=== PATIENT | female | born 1945 | race Asian ===

== ENCOUNTER 2022-06-30 22:51 | Emergency (ER) | payer MEDICARE, OTHER ==
[~2022-06-30] VITALS: Ht 152.4 cm; Wt 72.7 kg
[2022-06-30 23:39] LABS: BASOPHILS % (AUTO) 0.4 % (0.0-2.0); EOSINOPHILS % (AUTO) 0.2 % (1.0-6.0); HEMOGLOBIN 13.2 g/dL (12.0-16.0); LYMPHOCYTES # (AUTO) 1.1 K/uL (1.0-4.8); LYMPHOCYTES % (AUTO) 8.6 % (22.0-44.0); MEAN CORPUSCULAR HEMOGLOBIN 28.9 pg (26.0-34.0); MEAN CORPUSCULAR HGB CONC 32.9 G/dL (31.0-37.0); MEAN CORPUSCULAR VOLUME 88 fL (80-100); MONOCYTES # (AUTO) 0.6 K/uL (0.1-1.0); MONOCYTES % (AUTO) 4.4 % (2.0-9.0); NEUTROPHILS # (AUTO) 11.4 K/uL (1.8-7.7); PLATELET COUNT (AUTO) 312 K/uL (150-450); RED BLOOD CELL COUNT(AUTO) 4.55 MIL/uL (4.00-5.20); RED CELL DISTRIBUTION WIDTH 14.3 % (11.5-14.5)
[2022-06-30 23:48] LABS: NEUTROPHILS % (AUTO) 86.4 % (40.0-70.0)
[2022-06-30 23:50] LABS: ANION GAP 10 mmol/L (8-16); CALCIUM, TOTAL 9.1 mg/dL (8.8-10.5); CARBON DIOXIDE 27 mmol/L (22-29); CHLORIDE 101 mmol/L (98-107); CREATININE 0.64 mg/dL (0.60-1.30); GLOMERULAR FILTR. RATE CALC > 60 mL/min (>60); GLUCOSE,RANDOM 274 mg/dL (70-110); POTASSIUM 3.2 mmol/L (3.5-5.1); SODIUM SERUM 138 mmol/L (136-145); UREA NITROGEN, BLOOD 15 mg/dL (7-18)
[2022-07-01] MEDS ORDERED: FentaNYL CITRATE PF 100 MCG/2 ML VIAL IVP ONE
[2022-07-01] MEDS ORDERED: ONDANSETRON HCL 4 MG/2 ML VIAL IVP ONE
[2022-07-01 00:11] LABS: B-TYPE NATRIURETIC PEPTIDE 27 pg/mL (0-100)
[2022-07-01 00:15] LABS: ALANINE AMINOTRANSFERASE 20 U/L (12-78); ALBUMIN 4.1 g/dL (3.4-5.0); ALKALINE PHOSPHATASE 85 U/L (46-116); ASPARTATE AMINOTRANSFERASE 15 U/L (15-37); BILIRUBIN,TOTAL 0.4 mg/dL (0.1-1.0); CREATINE KINASE, TOTAL ONLY 105 U/L (26-192); LIPASE 73 U/L (73-393); TOTAL PROTEIN, SERUM 8.3 g/dL (6.4-8.2)
[2022-07-01 00:33] LABS: COVID AG,FIA SOURCE NASAL SWAB
[2022-07-01] MEDS ORDERED: METOCLOPRAMIDE HCL 5 MG/ML 2 ML VIAL IVP ONE (01:15)
[2022-07-01] MEDS ORDERED: HYDROmorphone HCL 2 MG/ML SYRINGE IVP ONE (01:15)
[2022-07-01 02:12] VITALS: BP 122/60
[2022-07-01] MEDS ORDERED: ASPIRIN 325 MG TABLET PO ONE (03:45)
== END 2022-07-01 05:23 | disposition left against medical advice (07) ==
LOC: EMS 22:51
DX: R10.10 Upper abdominal pain, unspecified (principal); K80.20 Calculus of gallbladder without cholecystitis without obstruction; R77.8 Other specified abnormalities of plasma proteins; I21.4 Non-ST elevation (NSTEMI) myocardial infarction; Z20.822 Contact with and (suspected) exposure to COVID-19
CPT/HCPCS: 99285; 96374; 71045; 87426; 80053; 82550; 83690; 83880; 84484; 85025; 36415; 93005 ×2; 74176; 96375; 76700; J2405; J3010; J1170; J2765

== ENCOUNTER 2023-01-02 15:21 | Emergency (ER) | payer MEDICARE, OTHER ==
[~2023-01-02] VITALS: Ht 152.4 cm; Wt 68.2 kg
[2023-01-02] MEDS ORDERED: NITROGLYCERIN 2% (1 GM=INCH) OINTMENT PACKET TP ONE (16:00)
[2023-01-02] MEDS ORDERED: ASPIRIN 81 MG CHEWABLE TABLET PO ONE (16:00)
[2023-01-02] MEDS ORDERED: ONDANSETRON HCL 4 MG/2 ML VIAL IVP ONE (16:00)
[2023-01-02 16:52] LABS: BASOPHILS % (AUTO) 0.3 % (0.0-2.0); EOSINOPHILS % (AUTO) 0 % (1.0-6.0); HEMATOCRIT 40.6 % (36-46); HEMOGLOBIN 13.2 g/dL (12.0-16.0); LYMPHOCYTES % (AUTO) 8.6 % (22.0-44.0); MEAN CORPUSCULAR HEMOGLOBIN 28.7 pg (26.0-34.0); MEAN CORPUSCULAR HGB CONC 32.6 G/dL (31.0-37.0); MEAN CORPUSCULAR VOLUME 88 fL (80-100); MONOCYTES # (AUTO) 0.4 K/uL (0.1-1.0); MONOCYTES % (AUTO) 3.6 % (2.0-9.0); NEUTROPHILS # (AUTO) 10.3 K/uL (1.8-7.7); PLATELET COUNT (AUTO) 259 K/uL (150-450); RED CELL DISTRIBUTION WIDTH 14.6 % (11.5-14.5); WHITE BLOOD COUNT (AUTO) 11.7 K/uL (4.5-11.0)
[2023-01-02 17:07] LABS: NEUTROPHILS % (AUTO) 87.5 % (40.0-70.0)
[2023-01-02 17:09] LABS: ANION GAP 13 mmol/L (8-16); CARBON DIOXIDE 26 mmol/L (22-29); CHLORIDE 99 mmol/L (98-107); CREATININE 0.73 mg/dL (0.60-1.30); GLOMERULAR FILTR. RATE CALC > 60 mL/min (>60); GLUCOSE,RANDOM 228 mg/dL (70-110); POTASSIUM 3.3 mmol/L (3.5-5.1); SODIUM SERUM 138 mmol/L (136-145); UREA NITROGEN, BLOOD 15 mg/dL (7-18)
[2023-01-02 17:24] LABS: TROPONIN I-HIGH SENSITIVITY 1510 ng/L (<51)
[2023-01-02] MEDS ORDERED: HEPARIN SODIUM,PORCINE 5,000 UNITS/ML VIAL IVP ONE ×2 (17:45)
[2023-01-02] MEDS ORDERED: HEPARIN SODIUM,PORCINE 5,000 UNITS/ML VIAL IVP PRN ×4 (17:45→18:45)
[2023-01-02] MEDS ORDERED: HEPARIN SODIUM 25000 UNITS/D5W 250 ML IV PRN ×2 (17:45→18:45)
[2023-01-02 18:07] LABS: INR 1.1 (0.9-1.1); PROTHROMBIN TIME 11.1 SEC (9.4-11.6)
[2023-01-02] MEDS ORDERED: ACETAMINOPHEN 325 MG TABLET PO PRN (18:45)
[2023-01-02] MEDS ORDERED: ATORVASTATIN CALCIUM 40 MG TABLET PO ONE (18:45)
[2023-01-02] MEDS ORDERED: POTASSIUM CHL 10 MEQ/WATER 50 ML IV PRN (19:00)
[2023-01-02] MEDS ORDERED: POTASSIUM CHLORIDE 20 MEQ ER TABLET PO PRN (19:00)
[2023-01-02] MEDS ORDERED: MAGNESIUM OXIDE 400 MG TABLET PO PRN (19:00)
[2023-01-02] MEDS ORDERED: INSULIN LISPRO 100 UNITS/ML SQ PRN (19:00)
[2023-01-02] MEDS ORDERED: MAGNESIUM SULFATE 2 GM/WATER 50 ML IV PRN (19:00)
[2023-01-02] MEDS ORDERED: MAGNESIUM SULFATE 4 GM/WATER 100 ML IV PRN (19:00)
[2023-01-02] MEDS ORDERED: DEXTROSE 50%-WATER 25 GM/50 ML SYRINGE IVP PRN (19:00)
[2023-01-02] MEDS: ONDANSETRON HCL 4 MG/2 ML VIAL IVP PRN (19:34)
[2023-01-02 19:49] LABS: ALBUMIN 3.9 g/dL (3.4-5.0)
[2023-01-02] MEDS ORDERED: METOPROLOL TARTRATE 25 MG TABLET PO SCH (21:00)
[2023-01-02] MEDS ORDERED: DOCUSATE SODIUM 100 MG CAPSULE PO SCH (21:00)
[2023-01-02] MEDS ORDERED: INSULIN GLARGINE,HUM.REC.ANLOG 100 UNITS/ML SQ SCH (21:00)
[2023-01-02] MEDS ORDERED: MORPHINE SULFATE 2 MG/ML SYRINGE IVP ONE (21:30)
[2023-01-02 22:58] LABS: TROPONIN I-HIGH SENSITIVITY 19520 ng/L (<51)
[2023-01-02] MEDS ORDERED: NITROGLYCERIN 0.3 MG SUBLINGUAL TABLET #100 SL ONE (23:15)
[2023-01-02] MEDS ORDERED: PB/HYOSCY/ATR/SCOP/LIDO/MAALOX 55 ML BOTTLE PO ONE (23:15)
[2023-01-02] MEDS ORDERED: MORPHINE SULFATE 2 MG/ML SYRINGE IVP PRN (23:30)
[2023-01-03] MEDS: ONDANSETRON HCL 4 MG/2 ML VIAL IVP PRN ×2 (00:48→06:26)
[2023-01-03 05:00] VITALS: TEMP 99.1
[2023-01-03 06:01] LABS: GLUCOMETER DEV NAME(LOC) ERT.5; GLUCOSE,POINT OF CARE 200 MG/DL (70-110)
[2023-01-03 07:20] VITALS: BP 105/65; PULSE 60; RESP 19
[2023-01-03 07:46] LABS: BASOPHILS % (AUTO) 0.2 % (0.0-2.0); EOSINOPHILS % (AUTO) 0 % (1.0-6.0); HEMATOCRIT 37.2 % (36-46); HEMOGLOBIN 12.5 g/dL (12.0-16.0); LYMPHOCYTES % (AUTO) 6.9 % (22.0-44.0); MEAN CORPUSCULAR HEMOGLOBIN 29.4 pg (26.0-34.0); MEAN CORPUSCULAR HGB CONC 33.6 G/dL (31.0-37.0); MEAN CORPUSCULAR VOLUME 88 fL (80-100); MONOCYTES # (AUTO) 1.1 K/uL (0.1-1.0); MONOCYTES % (AUTO) 7.2 % (2.0-9.0); NEUTROPHILS # (AUTO) 12.8 K/uL (1.8-7.7); PLATELET COUNT (AUTO) 259 K/uL (150-450); RED BLOOD CELL COUNT(AUTO) 4.25 MIL/uL (4.00-5.20); RED CELL DISTRIBUTION WIDTH 14.6 % (11.5-14.5)
[2023-01-03 07:52] LABS: NEUTROPHILS % (AUTO) 85.7 % (40.0-70.0)
[2023-01-03] MEDS ORDERED: ASPIRIN 81 MG CHEWABLE TABLET PO SCH (08:00)
[2023-01-03] MEDS ORDERED: ATORVASTATIN CALCIUM 40 MG TABLET PO SCH (09:00)
== END 2023-01-03 08:05 | disposition short-term general hospital (02) ==
LOC: EMS 15:24 → UNDOADMIN 22:04 → 5S 22:04 → EMS 01-03 08:05
DX: I21.4 Non-ST elevation (NSTEMI) myocardial infarction (principal)
CPT/HCPCS: 99291; 96366; 96365; 96375; 76705; 80048; 82040; 82962; 83036; 83735; 84484; 85025; 85610; 85730; 71045; 93005; 96376; 36415; J1644 ×2; J1815; J2270; J2405 ×2; 96374

== ENCOUNTER 2024-11-12 07:49 | Emergency (ER) | payer MEDICARE, OTHER ==
[~2024-11-12] VITALS: Ht 152.4 cm; Wt 56.8 kg
[~2024-11-12 07:49] MED LIST: ASPI81TA87 PO; ATOR-2 PO; PANT40TA54 PO
[2024-11-12 07:56] VITALS: PULSE 82; TEMP 97.9
[2024-11-12] MEDS ORDERED: OSIM80TA PO (07:59)
[2024-11-12] MEDS ORDERED: CLOP75TA32 PO (07:59)
[2024-11-12 09:29] VITALS: BP 121/73; RESP 19; O2SAT 97
[2024-11-12] MEDS ORDERED: PERCT PO (09:55)
== END 2024-11-12 10:06 | disposition home or self-care (01) ==
LOC: EMS 07:55
DX: J90 Pleural effusion, not elsewhere classified (principal); Z98.890 Other specified postprocedural states; Z79.02 Long term (current) use of antithrombotics/antiplatelets; Z79.82 Long term (current) use of aspirin
CPT/HCPCS: 71045; 99283

== ENCOUNTER 2024-11-12 21:23 | Inpatient (IN) | payer MEDICARE, OTHER ==
[~2024-11-12] VITALS: Ht 152.4 cm; Wt 54.2 kg
[~2024-11-12 21:23] MED LIST changes: +CLOP75TA32 PO; +OSIM80TA PO; +PERCT PO
[2024-11-13 00:01] LABS: PLATELET COUNT (AUTO) 373 K/uL (150-450); RED BLOOD CELL COUNT(AUTO) 4.57 MIL/uL (4.00-5.20); RED CELL DISTRIBUTION WIDTH 17.3 % (11.5-14.5); WHITE BLOOD COUNT (AUTO) 12.4 K/uL (4.5-11.0)
[2024-11-13 00:17] LABS: CALCIUM, TOTAL 9.1 mg/dL (8.8-10.5); CREATININE 0.62 mg/dL (0.60-1.30); GLOMERULAR FILTR. RATE CALC > 60 mL/min (>60); GLUCOSE,RANDOM 226 mg/dL (70-110); SODIUM SERUM 128 mmol/L (136-145); UREA NITROGEN, BLOOD 11 mg/dL (7-18)
[2024-11-13 00:18] LABS: ASPARTATE AMINOTRANSFERASE 25.0 U/L (15-37); TOTAL PROTEIN, SERUM 7.7 g/dL (6.4-8.2)
[2024-11-13 01:06] LABS: APPEARANCE,URINE HAZY (CLEAR); GLUCOSE, URINE (UA) TRACE mg/dL (NEGATIVE); LEUKOCYTE ESTERASE ,URINE NEGATIVE (NEGATIVE); NITRATE,URINE NEGATIVE (NEGATIVE); OCCULT BLOOD,URINE NEGATIVE (NEGATIVE); SPECIFIC GRAVITIY, URINE 1.010 (1.003-1.030)
[2024-11-13] MEDS: SODIUM CHLORIDE 0.9% 1,000 ML IV ONE (01:23)
[2024-11-13 03:25] VITALS: BP 128/73; PULSE 70; RESP 15; TEMP 97.7; O2SAT 97
[2024-11-13] MEDS ORDERED: ZOLPIDEM TARTRATE 5 MG TABLET PO PRN (06:15)
[2024-11-13] MEDS ORDERED: MAGNESIUM HYDROXIDE SUSPENSION 30 ML UDCUP PO PRN (06:15)
[2024-11-13] MEDS ORDERED: ACETAMINOPHEN 325 MG TABLET PO PRN (06:15)
[2024-11-13] MEDS ORDERED: ONDANSETRON HCL 4 MG/2 ML VIAL IVP PRN (06:15)
[2024-11-13] MEDS ORDERED: BISACODYL 10 MG RECTAL RECTAL SUPPOSITORY PR PRN (06:15)
[2024-11-13] MEDS: ASPIRIN 81 MG DR TABLET PO SCH (08:08)
[2024-11-13] MEDS: CLOPIDOGREL BISULFATE 75 MG TABLET PO SCH (08:09)
[2024-11-13] MEDS: DOCUSATE SODIUM 100 MG CAPSULE PO SCH (08:09)
[2024-11-13] MEDS: PANTOPRAZOLE SODIUM 40 MG DR TABLET PO SCH (08:09)
[2024-11-13] MEDS: HEPARIN SODIUM,PORCINE 5,000 UNITS/ML VIAL SQ SCH (08:10)
[2024-11-13 08:39] VITALS: BP 137/74; PULSE 70; RESP 15; TEMP 97.7; O2SAT 98
[2024-11-13] MEDS ORDERED: [UNRECOGNIZED DRUG - OTHER] PO SCH (09:00)
[2024-11-13 12:40] VITALS: BP 128/72; PULSE 74; RESP 18; TEMP 97.7; O2SAT 95
[2024-11-13 16:05] VITALS: BP 130/78; PULSE 75; RESP 18; TEMP 98.4; O2SAT 99
[2024-11-13 20:00] VITALS: BP 121/69; PULSE 65; RESP 18; TEMP 98.1; O2SAT 98
[2024-11-13] MEDS: ATORVASTATIN CALCIUM 40 MG TABLET PO SCH (20:44)
[2024-11-14] VITALS: BP 106/59; PULSE 62; RESP 16; TEMP 98.2; O2SAT 98
[2024-11-14 04:00] VITALS: BP_SYST 11; BP_SYST 114; BP_DIAS 59; PULSE 65; RESP 18; TEMP 97.5; O2SAT 96
[2024-11-14 06:24] LABS: PLATELET COUNT (AUTO) 438 K/uL (150-450); RED BLOOD CELL COUNT(AUTO) 4.48 MIL/uL (4.00-5.20); RED CELL DISTRIBUTION WIDTH 17.4 % (11.5-14.5); WHITE BLOOD COUNT (AUTO) 14.8 K/uL (4.5-11.0)
[2024-11-14 06:46] LABS: CALCIUM, TOTAL 9.0 mg/dL (8.8-10.5); CREATININE 0.91 mg/dL (0.60-1.30); GLOMERULAR FILTR. RATE CALC 60.0 mL/min (>60); GLUCOSE,RANDOM 148.0 mg/dL (70-110); SODIUM SERUM 131.0 mmol/L (136-145); UREA NITROGEN, BLOOD 14.0 mg/dL (7-18)
[2024-11-14 09:23] VITALS: BP 147/82; PULSE 73; RESP 19; TEMP 97.8; O2SAT 98
[2024-11-14 11:39] VITALS: BP 147/65; PULSE 71; RESP 20; TEMP 97.8; O2SAT 98
[2024-11-14] MEDS: MORPHINE SULFATE 2 MG/ML SYRINGE IVP PRN (15:24)
[2024-11-14] MEDS: POTASSIUM CHLORIDE 10% 40 MEQ/30 ML LIQUID UDCUP PO ONE (16:31)
[2024-11-14 18:21] VITALS: BP 123/87; PULSE 81; RESP 19; TEMP 97.3; O2SAT 97
[2024-11-14] MEDS: HYDROCODONE/ACETAMINOPHEN 5-325 MG TABLET PO PRN (18:39)
[2024-11-14 20:49] VITALS: BP 145/78; PULSE 74; RESP 18; TEMP 97.5; O2SAT 98
[2024-11-15] VITALS (8 sets, daily range): BP systolic 101–167; BP diastolic 61–97; PULSE 70–102; RESP 16–19; TEMP 97.3–98; O2SAT 95–99
[2024-11-15 07:00] LABS: PLATELET COUNT (AUTO) 444 K/uL (150-450); RED BLOOD CELL COUNT(AUTO) 4.59 MIL/uL (4.00-5.20); RED CELL DISTRIBUTION WIDTH 17.3 % (11.5-14.5); WHITE BLOOD COUNT (AUTO) 11.7 K/uL (4.5-11.0)
[2024-11-15 07:03] LABS: CALCIUM, TOTAL 8.9 mg/dL (8.8-10.5); CREATININE 0.57 mg/dL (0.60-1.30); GLOMERULAR FILTR. RATE CALC > 60 mL/min (>60); GLUCOSE,RANDOM 101 mg/dL (70-110); SODIUM SERUM 134 mmol/L (136-145); UREA NITROGEN, BLOOD 6 mg/dL (7-18)
[2024-11-15 07:22] LABS: RBC MORPHOLOGY COMMENT ABNORMAL RBC MORPH
[2024-11-15] MEDS ORDERED: CARV3.1231 PO (11:46)
[2024-11-15] MEDS ORDERED: POTASSIUM CHL 10 MEQ/WATER 50 ML IV PRN (13:30)
[2024-11-15] MEDS: POTASSIUM CHLORIDE 20 MEQ ER TABLET PO PRN (15:03)
[2024-11-16 04:32] VITALS: BP 132/82; PULSE 71; RESP 18; TEMP 97.7; O2SAT 97
[2024-11-16 06:50] LABS: PLATELET COUNT (AUTO) 421 K/uL (150-450); RED BLOOD CELL COUNT(AUTO) 4.72 MIL/uL (4.00-5.20); RED CELL DISTRIBUTION WIDTH 17.4 % (11.5-14.5); WHITE BLOOD COUNT (AUTO) 11.3 K/uL (4.5-11.0)
[2024-11-16 07:00] LABS: CALCIUM, TOTAL 8.7 mg/dL (8.8-10.5); CREATININE 0.53 mg/dL (0.60-1.30); GLOMERULAR FILTR. RATE CALC > 60 mL/min (>60); GLUCOSE,RANDOM 109 mg/dL (70-110); SODIUM SERUM 136 mmol/L (136-145); UREA NITROGEN, BLOOD 7 mg/dL (7-18)
[2024-11-16 08:10] VITALS: BP 136/91; PULSE 94; RESP 17; TEMP 97.6; O2SAT 98
[2024-11-16] MEDS ORDERED: HYDR-4061 PO (12:14)
[2024-11-16] MEDS ORDERED: ONDA-104 PO (12:14)
[2024-11-16] MEDS ORDERED: SODIUM CHLORIDE 0.9% 100 ML ONE (15:00)
[2024-11-16] MEDS ORDERED: IOHEXOL 300 MG/ML 100 ML VIAL ONE (15:00)
[2024-11-16] MEDS ORDERED: 0.9% SODIUM CHLORIDE 10 ML SYRINGE IVP ONE (15:00)
== END 2024-11-16 16:55 | disposition home or self-care (01) | DRG 392 ==
LOC: EMS 21:23 → EDH 11-13 01:24 → 5N 11-13 02:39 → 6S 11-15 15:24
PROVIDERS: ADMIT Internal Medicine; ATTEND Internal Medicine
PROC: 3E1L38Z Irrigation of Pleural Cavity using Irrigating Substance, Percutaneous Approach (ICD-10-PCS; principal; 2024-11-13)
PROC: 0B9P3ZZ Drainage of Left Pleura, Percutaneous Approach (ICD-10-PCS; 2024-11-13)
DX: A08.4 Viral intestinal infection, unspecified (principal); C34.90 Malignant neoplasm of unspecified part of unspecified bronchus or lung; E44.0 Moderate protein-calorie malnutrition; J91.0 Malignant pleural effusion; K21.9 Gastro-esophageal reflux disease without esophagitis; E78.5 Hyperlipidemia, unspecified; I25.10 Atherosclerotic heart disease of native coronary artery without angina pectoris; Z68.23 Body mass index [BMI] 23.0-23.9, adult; Z79.02 Long term (current) use of antithrombotics/antiplatelets; Z79.82 Long term (current) use of aspirin; Z95.5 Presence of coronary angioplasty implant and graft; Z79.899 Other long term (current) drug therapy
CPT/HCPCS: 71250; 71260; 72192; 74150; 80048; 80076; 81003; 84132; 85025; 85610; 85730; 87081; 93005; 96360; 96361; 99242; 99285; G0378; J1644; J2270; J7050; Q9967; 36415-L1; 36415-TC